=== PATIENT | female | born 1985 | race Two or more races ===

== ENCOUNTER 2019-05-26 17:41 | Emergency (ER) | payer OTHER ==
[~2019-05-26] VITALS: Ht 147.3 cm; Wt 45.8 kg
[2019-05-26 17:49] VITALS: BP 138/87; TEMP 98.1
== END 2019-05-26 18:30 | disposition home or self-care (01) ==
LOC: ED 17:41
DX: F41.9 Anxiety disorder, unspecified (principal)
CPT/HCPCS: 99281

== ENCOUNTER 2019-08-13 19:45 | Emergency (ER) | payer OTHER ==
[~2019-08-13] VITALS: Ht 157.5 cm; Wt 47.6 kg
[2019-08-13 22:10] LABS: PLATELET COUNT 175 K/uL (152-353)
[2019-08-13 22:19] LABS: POTASSIUM 3.9 mmol/L (3.6-5.2)
[2019-08-13 23:00] VITALS: BP 112/58; TEMP 98.7
== END 2019-08-13 23:00 | disposition home or self-care (01) ==
LOC: ED 19:45
PROVIDERS: Hospitalist
DX: O20.0 Threatened abortion (principal)
CPT/HCPCS: 36415; 80048; 81025; 84702; 85027; 99284

== ENCOUNTER 2019-10-10 22:04 | Emergency (ER) | payer OTHER ==
[~2019-10-10] VITALS: Ht 157.5 cm; Wt 63.5 kg
[2019-10-10 23:17] LABS: PLATELET COUNT 181 K/uL (152-353)
[2019-10-10 23:38] LABS: POTASSIUM 4.2 mmol/L (3.6-5.2)
[2019-10-11 00:47] VITALS: BP 110/52; TEMP 97.8
== END 2019-10-11 00:47 | disposition home or self-care (01) ==
LOC: ED 22:04
PROVIDERS: Emergency Medicine
DX: Z3A.16 16 weeks gestation of pregnancy (principal); O21.9 Vomiting of pregnancy, unspecified; O47.02 False labor before 37 completed weeks of gestation, second trimester
CPT/HCPCS: 36415; 80053; 81000; 84702; 85027; 96365; 99284; J2405

== ENCOUNTER 2020-10-21 03:12 | Emergency (ER) | payer OTHER ==
[~2020-10-21] VITALS: Ht 157.5 cm; Wt 49.4 kg
[2020-10-21 04:13] LABS: PLATELET COUNT 174 K/uL (152-353)
[2020-10-21 04:19] LABS: POTASSIUM 4.3 mmol/L (3.6-5.2)
[2020-10-21 04:31] LABS: PARTIAL THROMBOPLASTIN TIME 29.4 SECONDS (24.5-33.6)
[2020-10-21 05:20] VITALS: BP 123/68; TEMP 98.9
== END 2020-10-21 05:20 | disposition home or self-care (01) ==
LOC: ED 03:12
PROVIDERS: Hospitalist
DX: N94.3 Premenstrual tension syndrome (principal)
CPT/HCPCS: 36415; 80048; 81000; 84702; 85027; 85610; 85730; 96360; 96361; 99284